=== PATIENT | female | born 1985 | race Caucasian/White ===

== ENCOUNTER 2017-06-21 03:04 | Emergency (ER) | payer MEDICAID, OTHER ==
[~2017-06-21] VITALS: Ht 160 cm; Wt 72.6 kg
[~2017-06-21 03:04] MED LIST: CEFD300C3 PO; CEPH500C PO; CYCL10TA9 PO; IBUP-30 PO; OXYC-471 PO; PRD10T PO
[2017-06-21 05:16] LABS: BILIRUBIN,URINE NEGATIVE (NEGATIVE); COLOR,URINE YELLOW; GLUCOSE, URINE (UA) NEGATIVE (NEGATIVE); KETONES,URINE 4+ (NEGATIVE); LEUKOCYTE ESTERASE ,URINE 3+ (NEGATIVE); NITRITE,URINE POSITIVE (NEGATIVE); PH,URINE 6 (5-9); PROTEIN,URINE 3+ (NEGATIVE); UROBILINOGEN,URINE 1 MG/DL (NORMAL)
[2017-06-21 05:22] LABS: BACTERIA,URINE LARGE /HPF; CLARITY,URINE SLIGHTLY CLOUDY; WBC,URINE TNTC /HPF
--- NOTE | 2017-06-21 05:26 | ED Back Pain ---
General Chief Complaint: Back Problems Stated Complaint: POSS KIDNEY INFECTION Nursing Triage Note: pt states back pain x3 days, Nursing Sepsis Screen: No Definite Risk Source of Information: Patient History of Present Illness Date Seen by Provider: Jun 21, 2017 Time Seen by Provider: 04:40 Initial Comments C/O RIGHT FLANK PAIN X 3 DAYS PAIN IS CONSTANT NOTHING WORSENS OR IMPROVES PAIN --NO RELIEF WITH IBUPROFEN AT MIDNIGHT NO RADIATION OF PAIN HAS HAD SUBJECTIVE FEVER C/O DECREASED URINE OUTPUT HAS POSSIBLY HAD INTERMITTENT BLOOD IN URINE TODAY NO PAIN / BURNING ON URINATION, BUT TOOK OTC TEST FOR UTI AND IT WAS POSITIVE, PER PT + NAUSEA AND COUPLE SMALL EPISODES OF VOMITING HAS BEEN CONSTIPATED--LAST BM 3 DAYS AGO, NORMAL FOR PT. NO BM AFTER DULCOLAX. LMP 05/26/17--HAD NEXPLANON REMOVED 05/31/17 HAS HAD UTI WITH SEPSIS X 1 IN PAST Other Comments PCP: [facility]. FLYNN CATHERINE Allergies and Home Medications Allergies Coded Allergies: No Known Drug Allergies (Unverified , 07/25/15) Home Medications Prednisone 10 Mg Tab, 10 MG PO DAILY Take 6 tabs(60mg)daily, decrease by 1 tab(10mg) every other day. Prescribed by: LEIDY REGALADO on 07/28/15 0928 Constitutional: see HPI, fever Respiratory: no symptoms reported Cardiovascular: no symptoms reported Gastrointestinal: see HPI, constipation, nausea, vomiting Genitourinary: see HPI, decreased output, hematuria : No LMP: May 26, 2017 Musculoskeletal: see HPI, back pain Skin: no symptoms reported Psychiatric/Neurological: No Symptoms Reported Past Hgnfmhe-Gmtvjt-Ytlizv Hx Patient Social History Alcohol Use: Rarely Uses Recreational Drug Use: Yes (+ IV METH AND OPIATES) Drug of Choice: +IV METH AND OPIATES Smoking Status: Current Everyday Smoker (1 PPD) Type Used: Cigarettes (1 PPD) Recent Foreign Travel: No Contact w/Someone Who Travel: No Recent Infectious Disease Expo: No Immunizations Up To Date Date of Influenza Vaccine: Jan 23, 2013 Surgeries History of Surgeries: No Respiratory History of Respiratory Disorde: No Cardiovascular History of Cardiac Disorders: No Neurological History of Neurological Disord: No Reproductive System : No Hx Reproductive Disorders: No Female Reproductive Disorders: Denies Genitourinary History of Genitourinary Disor: Yes (SEPSIS X 1 WITH UTI) Genitourinary Disorders: Bladder Infection Gastrointestinal History of Gastrointestinal Di: Yes (HEPATITIS C --NO TREATMENT) Gastrointestinal Disorders: Chronic Constipation, Hepatitis Musculoskeletal History of Musculoskeletal Dis: No Endocrine History of Endocrine Disorders: No HEENT History of HEENT Disorders: No Cancer History of Cancer: No Psychosocial History of Psychiatric Problem: No Integumentary History of Skin or Integumenta: No Blood Transfusions History of Blood Disorders: No Family Medical History Significant Family History: No Pertinent Family Hx Family Medial History: FH: bipolar disorder 19 FATHER FH: congestive heart failure 19 FATHER Physical Exam Vital Signs Vital Signs - First Documented 06/21/17 04:37 Temp 97.6 Pulse 103 Resp 20 B/P (MAP) 120/73 (89) Pulse Ox 96 O2 Delivery Room Air Capillary Refill : Less Than 3 Seconds General Appearance: No Apparent Distress, WD/WN, Other (SLEEPING SOUNDLY, EASILY AWAKENED) Neck: Normal Inspection Cardiovascular: Regular Rate, Rhythm, No Edema, No JVD, No Murmur, Normal Peripheral Pulses Respiratory: Normal Breath Sounds, No Accessory Muscle Use, No Respiratory Distress Gastrointestinal: Normal Bowel Sounds, Non Tender, Soft Back: CVA Tenderness (R) Extremity: Normal Inspection Neurologic/Psychiatric: Alert, Oriented x3, No Motor/Sensory Deficits, Normal 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, 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 PT OPTS TO TRY ORAL ANTIBIOTICS FIRST AND F/U WITH PCP THIS WEEK FOR FURTHER CARE Departure Impression Impression: Primary Impression: UTI (urinary tract infection) Disposition: 01 HOME, SELF-CARE Condition: Stable Departure-Patient Inst. Referrals: BROOKE SMYTH MD (PCP/Family) Primary Care Physician Patient Instructions: Urinary Tract Infection, Adult (DC) Add. Discharge Instructions: LOTS OF CLEAR LIQUIDS--NO COFFEE, POP OR TEA FOLLOW UP WITH YOUR DR IN 2-3 DAYS FOR RECHECK RETURN TO ER IF SYMPTOMS WORSEN All discharge instructions reviewed with patient and/or family. Voiced understanding. Scripts Ketorolac Tromethamine (Ketorolac Tromethamine) 10 Mg Tablet 10 MG PO Q6H for Pain, #15 TAB Prov: DAYNE WELLS DO 06/21/17 Levofloxacin (Levaquin) 500 Mg Tablet 500 MG PO DAILY for INFECTION, #10 TAB Prov: DAYNE WELLS DO 06/21/17 DAYNE WELLS DO Jun 21, 2017 05:26
[2017-06-21] MEDS ORDERED: KETOROLAC 60 MG/2 ML VIAL IM STA (05:29)
[2017-06-21] MEDS ORDERED: cefTRIAXone 1 GM (ROCEPHIN) VIAL IM ONE (05:30)
[2017-06-21] MEDS ORDERED: LIDOCAINE 1% INJ 20 ML (XYLOCAINE) VIAL INJ ONE (05:30)
[2017-06-21] MEDS ORDERED: LEVO500T2 PO (05:31)
[2017-06-21] MEDS ORDERED: KETO10TA PO (05:31)
[2017-06-21] MEDS ORDERED: LIDOCAINE 1% INJ 50 ML (XYLOCAINE) VIAL ONE (05:48)
[2017-06-21 06:20] VITALS: BP 120/73
== END 2017-06-21 06:20 | disposition home or self-care (01) ==
LOC: EDUNIT# 03:04 → ER 03:22
DX: N39.0 Urinary tract infection, site not specified (principal); F11.90 Opioid use, unspecified, uncomplicated; F15.90 Other stimulant use, unspecified, uncomplicated; F17.210 Nicotine dependence, cigarettes, uncomplicated; Z79.52 Long term (current) use of systemic steroids; Z87.19 Personal history of other diseases of the digestive system
CPT/HCPCS: 81000; 87077; 87088; 87186; 96372; 99284

== ENCOUNTER 2018-11-04 07:35 | Emergency (ER) | payer SELFPAY ==
[~2018-11-04] VITALS: Ht 160 cm; Wt 72.6 kg
[~2018-11-04 07:35] MED LIST changes: +KETO10TA PO; +LEVO500T2 PO
--- OUTSIDE RECORDS SUMMARY | 2018-11-04 07:40 | XMS REPORT | Continuity of Care Document ---
Author Organization Unknown Address Unknown Allergies Active Description Code Type Severity Reaction Onset Reported/Identified Relationship to Patient Clinical Status Yes No Known Drug Allergies [id number] Drug Allergy Unknown N/A 07/25/2015 Medications There is no data. 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 06/11/2008 EDGARDO CLINE DO 466.0 BRONCHITIS, ACUTE 05/22/2012 EDGARDO CLINE DO 382.9 OTITIS MEDIA 06/25/2015 JANETT JANSEN MD Ot B18.2 06/25/2015 JANETT JANSEN MD Ot F15.10 06/25/2015 JANETT JANSEN MD Ot F17.210 06/25/2015 JANETT JANSEN MD Ot M54.07 06/25/2015 JANETT JANSEN MD Ot M54.5 06/25/2015 JANETT JANSEN MD Ot N39.0 06/25/2015 JANETT JANSEN MD Ot B18.2 06/25/2015 JANETT JANSEN MD Ot F15.10 06/25/2015 JANETT JANSEN MD Ot F17.210 06/25/2015 JANETT JANSEN MD Ot M54.07 06/25/2015 JANETT JANSEN MD Ot M54.5 06/25/2015 JANETT JANSEN MD Ot N39.0 06/26/2015 JANETT JANSEN MD Ot B18.2 06/26/2015 JANETT JANSEN MD Ot F15.10 06/26/2015 JANETT JANSEN MD Ot F17.210 06/26/2015 JANETT JANSEN MD Ot M54.07 06/26/2015 JANETT JANSEN MD Ot M54.5 06/26/2015 JANETT JANSEN MD Ot N39.0 06/27/2015 JANETT JANSEN MD Ot B18.2 06/27/2015 JANETT JANSEN MD Ot F15.10 06/27/2015 JANETT JANSEN MD Ot F17.210 06/27/2015 JANETT JANSEN MD Ot M54.07 06/27/2015 JANETT JANSEN MD Ot M54.5 06/27/2015 JANETT JANSEN MD Ot N39.0 06/30/2015 JANETT JANSEN MD Ot A41.01 SEPSIS DUE TO METHICILLIN SUSCEPTIBLE ST 06/30/2015 JANETT JANSEN MD Ot B18.2 CHRONIC VIRAL HEPATITIS C 06/30/2015 JANETT JANSEN MD Ot B96.20 UNSP ESCHERICHIA COLI THE CAUSE OF DI 06/30/2015 JANETT JANSEN MD Ot F15.10 OTHER STIMULANT ABUSE, UNCOMPLICATED 06/30/2015 JANETT JANSEN MD Ot F17.210 NICOTINE DEPENDENCE, CIGARETTES, UNCOMPL 06/30/2015 JANETT JANSEN MD Ot I08.1 RHEUMATIC DISORDERS OF BOTH MITRAL AND T 06/30/2015 JANETT JANSEN MD Ot L03.317 CELLULITIS OF BUTTOCK 06/30/2015 JANETT JANSEN MD Ot M54.07 PANNICULITIS AFFECTING REGIONS OF NECK/B 06/30/2015 JANETT JANSEN MD Ot N39.0 URINARY TRACT INFECTION, SITE NOT SPECIF 07/28/2015 LEIDY REGALADO DO Ot B19.20 UNSPECIFIED VIRAL HEPATITIS C WITHOUT HE 07/28/2015 LEIDY REGALADO DO Ot F15.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 STIMULANT ABUSE, UNCOMPLICATED 07/28/2015 VERONICA REGALADO DOI Ot F17.210 NICOTINE DEPENDENCE, CIGARETTES, UNCOMPL 07/28/2015 LEIDY REGALADO DO Ot L95.9 VASCULITIS LIMITED TO THE SKIN, UNSPECIF 07/28/2015 LEIDY REGALADO DO Ot Z91.19 PATIENT'S NONCOMPLIANCE W [facility] 06/21/2017 RUSSELL DO, DAYNE K Ot F11.90 OPIOID USE, UNSPECIFIED, UNCOMPLICATED 06/21/2017 RUSSELL DO, DAYNE K Ot F15.90 OTHER STIMULANT USE, UNSPECIFIED, UNCOMP 06/21/2017 RUSSELL DO, DAYNE K Ot F17.210 NICOTINE DEPENDENCE, CIGARETTES, UNCOMPL 06/21/2017 RUSSELL DO, DAYNE K Ot M54.9 DORSALGIA, UNSPECIFIED 06/21/2017 RUSSELL DO, DAYNE K Ot N39.0 URINARY TRACT INFECTION, SITE NOT SPECIF 06/21/2017 RUSSELL DO, DAYNE K Ot Z79.52 RESIDENTIAL (CURRENT) USE OF SYSTEMIC STER 06/21/2017 RUSSELL DO, DAYNE K Ot Z87.19 PERSONAL HISTORY OF OTHER DISEASES OF TH 06/23/2017 RUSSELL DO, DAYNE K Ot F11.90 OPIOID USE, UNSPECIFIED, UNCOMPLICATED 06/23/2017 RUSSELL DO, DAYNE K Ot F15.90 OTHER STIMULANT USE, UNSPECIFIED, UNCOMP 06/23/2017 RUSSELL DO, DAYNE K Ot F17.210 NICOTINE DEPENDENCE, CIGARETTES, UNCOMPL 06/23/2017 RUSSELL DO, DAYNE K Ot M54.9 DORSALGIA, UNSPECIFIED 06/23/2017 RUSSELL DO, DAYNE K Ot N39.0 URINARY TRACT INFECTION, SITE NOT SPECIF 06/23/2017 RUSSELL DO, DAYNE K Ot Z79.52 RESIDENTIAL (CURRENT) USE OF SYSTEMIC STER 06/23/2017 RUSSELL DO, DAYNE K Ot Z87.19 PERSONAL HISTORY OF OTHER DISEASES OF Procedures Code Description Performed By Performed On [id number] INSERTION OF INFUSION DEV INTO SUP VENA 06/25/2015 [id number] EXCISION OF LEFT LOWER LEG SKIN, EXTERNA 07/25/2015 Results Test Result Range Complete urinalysis with reflex to culture - 06/21/17 04:30 Urine color determination YELLOW NRG Urine clarity determination SLIGHTLY CLOUDY NRG Urine pH measurement by test strip 6 5-9 Specific gravity of urine by test strip 1.010 1.016-1.022 Urine protein assay by test strip, semi-quantitative 3+ NEGATIVE Urine glucose detection by automated test strip NEGATIVE NEGATIVE Erythrocytes detection in urine sediment by light microscopy 2+ NEGATIVE Urine ketones detection by automated test strip 4+ NEGATIVE Urine nitrite detection by test strip POSITIVE NEGATIVE Urine total bilirubin detection by test strip NEGATIVE NEGATIVE Urine urobilinogen measurement by automated test strip (mass/volume) 1 mg/dL NORMAL Urine leukocyte esterase detection by dipstick 3+ NEGATIVE Automated urine sediment erythrocyte count by microscopy (number/high power field) [HPF] NRG Automated urine sediment leukocyte count by microscopy (number/high power field) TNTC NRG Bacteria detection in urine sediment by light microscopy LARGE NRG Crystals detection in urine sediment by light microscopy NONE NRG Casts detection in urine sediment by light microscopy NONE NRG Mucus detection in urine sediment by light microscopy NEGATIVE NRG Complete urinalysis with reflex to culture YES NRG Bacterial urine culture - 06/21/17 04:30 Bacterial urine culture [id number] NRG COLONY COUNT >100,000/ML NRG FTX;REPORTABLE SENSITIVITY REPORTED 06/22/17 16:00 NRG URINE CULTURE RESULTS PLUS NRG Bacterial susceptibility panel - 06/21/17 04:30 Gentamicin susceptibility test by minimum inhibitory concentration <= NRG Trimethoprim/sulfamethoxazole susceptibility test by minimum inhibitoryconcentration S NRG Ampicillin susceptibility test by minimum inhibitory concentration <= NRG Tobramycin susceptibility test by minimum inhibitory concentration <= NRG Cefazolin susceptibility test by minimum inhibitory concentration <= NRG Ceftriaxone susceptibility test by minimum inhibitory concentration <= NRG Ampicillin/sulbactam susceptibility test by minimum inhibitory concentration <= NRG Piperacillin/tazobactam susceptibility test by minimum inhibitory concentration S NRG Ciprofloxacin susceptibility test by minimum inhibitory concentration <= NRG Meropenem susceptibility test by minimum inhibitory concentration <= NRG Nitrofurantoin susceptibility test by minimum inhibitory concentration <= NRG Aztreonam susceptibility test by minimum inhibitory concentration <= NRG Extended spectrum beta lactamase (ESBL) producing bacteria susceptibility test by minimum inhibitory concentration - NRG Encounters ACCT No. Visit Date/Time Discharge Status Pt. Type Provider Facility Loc./Unit Complaint [id number] 05/22/2012 14:22:00 05/22/2012 23:59:59 CLS Outpatient EDGARDO CLINE DO [id number] 06/21/2017 03:22:00 06/21/2017 06:20:00 DIS Emergency DAYNE WELLS DO [facility] ER POSS KIDNEY INFECTION [id number] 07/25/2015 09:09:00 07/28/2015 14:20:00 DIS Inpatient LEIDY REGALADO DO [facility] 4TH CELLULITIS [id number] 06/23/2015 20:19:00 06/30/2015 11:35:00 DIS Inpatient JUSTYNA ESPINOZA, JANETT Glass [facility] 4TH PANCREATITIS
--- NOTE | 2018-11-04 08:14 | NUR ---
X2 ATTEMPTS TO START IV PATIENT HAS OLD TRACK EPPS. Addendum: 11/04/18 at 0814 by PMCCLURE ORDER TO HAVE LAB DRAW. Addendum: 11/04/18 at 0816 by PMCCLURE LAB CALLED TO DRAW BLOOD.
[2018-11-04 08:17] LABS: BILIRUBIN,URINE NEGATIVE (NEGATIVE); CLARITY,URINE SLIGHTLY CLOUDY; COLOR,URINE YELLOW; GLUCOSE, URINE (UA) NEGATIVE (NEGATIVE); KETONES,URINE 1+ (NEGATIVE); LEUKOCYTE ESTERASE ,URINE 1+ (NEGATIVE); NITRITE,URINE POSITIVE (NEGATIVE); PH,URINE 5 (5-9); PROTEIN,URINE 1+ (NEGATIVE); UROBILINOGEN,URINE NORMAL (NORMAL)
[2018-11-04 08:24] LABS: BACTERIA,URINE LARGE /HPF; SQUAMOUS EPITHELIAL CELL,UR RARE /HPF
--- NOTE | 2018-11-04 08:29 | NUR ---
Gayathri clemons in ED - 11/04/[address] JANSEN AWARE PATIENT CON'T TO C/O PAIN
[2018-11-04] MEDS ORDERED: LIDOCAINE 2% VISCOUS 15 ML UDC PO ONE (08:30)
[2018-11-04] MEDS ORDERED: ANTACID SUSP 30 ML UDC (MYLANTA) PO ONE (08:30)
[2018-11-04 08:39] LABS: METHAMPHETAMINE SCREEN URINE S POSITIVE (NEGATIVE)
[2018-11-04 08:40] LABS: AMPHETAMINE SCREEN, URINE POSITIVE (NEGATIVE); BARBITURATE SCREEN URINE NEGATIVE (NEGATIVE); BENZODIAZEPINES SCREEN URINE NEGATIVE (NEGATIVE); CANNABINOID SCREEN, URINE NEGATIVE (NEGATIVE); COCAINE SCREEN URINE NEGATIVE (NEGATIVE); METHADONE STAT NEGATIVE (NEGATIVE); OPIATE SCREEN URINE POSITIVE (NEGATIVE); OXYCODONE STAT NEGATIVE (NEGATIVE); PROPOXYPHENE STAT NEGATIVE (NEGATIVE); TRICYCLIC ANTIDEPRESSANTS SCRE NEGATIVE (NEGATIVE)
[2018-11-04 09:37] LABS: BASOPHILS % (AUTO) 0 % (0-10); EOSINOPHILS # (AUTO) 0.1 10^3/uL (0.0-0.3); EOSINOPHILS % (AUTO) 2 % (0-10); HEMATOCRIT 39 % (35-52); HEMOGLOBIN 12.9 G/DL (11.5-16.0); LYMPHOCYTES # (AUTO) 1.8 X 10^3 (1.0-4.0); LYMPHOCYTES % (AUTO) 20 % (12-44); MEAN CORPUSCULAR HEMOGLOBIN 29 PG (25-34); MEAN CORPUSCULAR HGB CONC 33 G/DL (32-36); MEAN CORPUSCULAR VOLUME 88 FL (80-99); MEAN PLATELET VOLUME 10.1 FL (7.4-10.4); MONOCYTES % (AUTO) 11 % (0-12); NEUTROPHILS # (AUTO) 6.1 X 10^3 (1.8-7.8); NEUTROPHILS % (AUTO) 67 % (42-75); PLATELET COUNT 233 10^3/uL (130-400); WHITE BLOOD COUNT 9.1 10^3/uL (4.3-11.0)
--- NOTE | 2018-11-04 09:57 | NUR ---
TO ROOM TO GIVE PATIENT PHONE TO RETURN CALL TO HER DAD. SLEEPING AWAKEND TO GIVE HER PHONE TO CALL DAD
[2018-11-04 09:58] LABS: ALANINE AMINOTRANSFERASE 9 U/L (0-55); ALBUMIN 4.1 GM/DL (3.2-4.5); ALKALINE PHOSPHATASE 57 U/L (40-136); BILIRUBIN,TOTAL 0.5 MG/DL (0.1-1.0); BUN/CREATININE RATIO 22; CALCIUM 9.3 MG/DL (8.5-10.1); CARBON DIOXIDE 28 MMOL/L (21-32); CHLORIDE 98 MMOL/L (98-107); CREATININE SERUM 0.81 MG/DL (0.60-1.30); GFR ESTIMATED > 60; GLUCOSE 99 MG/DL (70-105); POTASSIUM 3.6 MMOL/L (3.6-5.0); SODIUM 135 MMOL/L (135-145); TOTAL PROTEIN 7.3 GM/DL (6.4-8.2)
--- NOTE | 2018-11-04 10:06 | ED Abdominal Pain ---
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 She reports this pain has been there for 2 weeks. This morning she ate a baked potato and noted an increase in pain. She injected IV morphine. Difficulty was encountered in obtaining blood for lab exam. Apparently this could be ascribed to previous IV drug use. Timing/Duration: Other Severity/Quality: Moderate Location: RUQ Radiation: No Radiation Allergies and Home Medications Allergies Coded Allergies: No Known Drug Allergies (Unverified , 07/25/15) Home Medications Ketorolac Tromethamine 10 Mg Tablet, 10 MG PO Q6H Prescribed by: DAYNE WELLS on 06/21/17 0531 Levofloxacin 500 Mg Tablet, 500 MG PO DAILY Prescribed by: DAYNE WELLS on 06/21/1731 Prednisone 10 Mg Tab, 10 MG PO DAILY Take 6 tabs(60mg)daily, decrease by 1 tab(10mg) every other day. Prescribed by: LEIDY REGALADO on 07/28/15 0928 Patient Home Medication List Home Medication List Reviewed: Yes Review of Systems Review of Systems Constitutional: see HPI EENTM: No Symptoms Reported Respiratory: No Symptoms Reported Cardiovascular: No Symptoms Reported Gastrointestinal: See HPI Genitourinary: No Symptoms Reported Musculoskeletal: no symptoms reported Skin: no symptoms reported Psychiatric/Neurological: No Symptoms Reported Endocrine: No Symptoms Reported Hematologic/Lymphatic: No Symptoms Reported Past Nlqdexx-Mwurui-Tbdqkp Hx Patient Social History Alcohol Use: Occasionally Uses Recreational Drug Use: Yes (USED IV 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 11/10) Drug of Choice: +IV METH AND OPIATES Smoking Status: Current Everyday Smoker Type Used: Cigarettes Recent Foreign Travel: No Contact w/Someone Who Travel: No Recent Infectious Disease Expo: No Recent Hopitalizations: No Immunizations Up To Date Date of Influenza Vaccine: Jan 23, 2013 Past Medical History Surgeries: No Orthopedic Respiratory: No Cardiac: No Neurological: No Reproductive Disorders: No Female Reproductive Disorders: Denies Genitourinary: Yes (SEPSIS X 1 WITH UTI) Bladder Infection Gastrointestinal: Yes (HEPATITIS C --NO TREATMENT) Chronic Constipation, Hepatitis Musculoskeletal: No Endocrine: No HEENT: No Cancer: No Psychosocial: No Integumentary: No Blood Disorders: No Family Medical History FH: bipolar disorder 19 FATHER FH: congestive heart failure 19 FATHER No Pertinent Family Hx Physical Exam Vital Signs Vital Signs - First Documented 11/04/18 07:37 Temp 99.0 Pulse 100 Resp 18 B/P (MAP) 114/69 (84) Pulse Ox 98 Capillary Refill : Less Than 3 Seconds Height/Weight/BMI Height: 5'3.00" Weight: 160lbs. 1.0oz. [id number]; 26.8 BMI Method:Stated General Appearance: mild distress HEENT: normal ENT inspection Neck: full range of motion Respiratory: chest non-tender, lungs clear, normal breath sounds, no respiratory distress, no accessory muscle use Cardiovascular: normal peripheral pulses, regular rate, rhythm, no edema, no gallop, no JVD, no murmur Gastrointestinal: normal bowel sounds, non tender, soft, no organomegaly, no pulsatile mass Progress/Results/Core Measures Results/Orders Lab Results Laboratory Tests Test 11/04/18 08:13 11/04/18 09:28 Range/Units Urine Color YELLOW Urine Clarity SLIGHTLY CLOUDY Urine pH 5 5-9 Urine Specific [place] 1.025 H 1.016-1.022 Urine Protein 1+ H NEGATIVE Urine Glucose (UA) NEGATIVE NEGATIVE Urine Ketones 1+ H NEGATIVE Urine Nitrite POSITIVE H NEGATIVE Urine Bilirubin NEGATIVE NEGATIVE Urine Urobilinogen NORMAL NORMAL MG/DL Urine Leukocyte Esterase 1+ H NEGATIVE Urine RBC (Auto) NEGATIVE NEGATIVE Urine RBC NONE /HPF Urine WBC 5-10 H /HPF Urine Squamous Epithelial Cells RARE /HPF Urine Crystals NONE /LPF Urine Bacteria LARGE H /HPF Urine Casts NONE /LPF Urine Mucus LARGE H /LPF Urine Culture Indicated YES Urine Opiates Screen POSITIVE H NEGATIVE Urine Oxycodone Screen NEGATIVE NEGATIVE Urine Methadone Screen NEGATIVE NEGATIVE Urine Propoxyphene Screen NEGATIVE NEGATIVE Urine Barbiturates Screen NEGATIVE NEGATIVE Ur Tricyclic Antidepressants Screen NEGATIVE NEGATIVE Urine Phencyclidine Screen NEGATIVE NEGATIVE Urine Amphetamines Screen POSITIVE H NEGATIVE Urine Methamphetamines Screen POSITIVE H NEGATIVE Urine Benzodiazepines Screen NEGATIVE NEGATIVE Urine Cocaine Screen NEGATIVE NEGATIVE Urine Cannabinoids Screen NEGATIVE NEGATIVE White Blood Count 9.1 4.3-11.0 10^3/uL Red Blood Count 4.41 4.35-5.85 10^6/uL Hemoglobin 12.9 11.5-16.0 G/DL Hematocrit 39 35-52 % Mean Corpuscular Volume 88 80-99 FL Mean Corpuscular Hemoglobin 29 25-34 PG Mean Corpuscular Hemoglobin Concent 33 32-36 G/DL Red Cell Distribution Width 12.0 10.0-14.5 % Platelet Count 233 130-400 10^3/uL Mean Platelet Volume 10.1 7.4-10.4 FL Neutrophils (%) (Auto) 67 42-75 % Lymphocytes (%) (Auto) 20 12-44 % Monocytes (%) (Auto) 11 0-12 % Eosinophils (%) (Auto) 2 0-10 % Basophils (%) (Auto) 0 0-10 % Neutrophils # (Auto) 6.1 1.8-7.8 X 10^3 Lymphocytes # (Auto) 1.8 1.0-4.0 X 10^3 Monocytes # (Auto) 1.0 0.0-1.0 X 10^3 Eosinophils # (Auto) 0.1 0.0-0.3 10^3/uL Basophils # (Auto) 0.0 0.0-0.1 10^3/uL Sodium Level 135 135-145 MMOL/L Potassium Level 3.6 3.6-5.0 MMOL/L Chloride Level 98 98-107 MMOL/L Carbon Dioxide Level 28 21-32 MMOL/L Anion Gap 9 5-14 MMOL/L Blood Urea Nitrogen 18 7-18 MG/DL Creatinine 0.81 0.60-1.30 MG/DL Estimat Glomerular Filtration Rate > 60 BUN/Creatinine Ratio 22 Glucose Level 99 70-105 MG/DL Calcium Level 9.3 8.5-10.1 MG/DL Corrected Calcium 9.2 8.5-10.1 MG/DL Total Bilirubin 0.5 0.1-1.0 MG/DL Aspartate Amino Transf (AST/SGOT) 12 5-34 U/L Alanine Aminotransferase (ALT/SGPT) 9 0-55 U/L Alkaline Phosphatase 57 40-136 U/L Total Protein 7.3 6.4-8.2 GM/DL Albumin 4.1 3.2-4.5 GM/DL Lipase 7 L 8-78 U/L Serum Alcohol < 10 <10 MG/DL My Orders Orders - JANETT JANSEN MD Alcohol (11/04/18 07:54) Cbc With Automated Diff (11/04/18 07:54) Comprehensive Metabolic Panel (11/04/18 07:54) Drug Screen Stat (Urine) (11/04/18 07:54) Ua Culture If Indicated (11/04/18 07:54) Antacid Suspension (Mylanta Suspension (11/04/18 08:30) Lidocaine 2% Viscous 15 Ml (Xylocaine Vi (11/04/18 08:30) Urine Culture (11/04/18 08:13) Lipase (11/04/18 10:06) Medications Given in ED Current Medications Medications Dose Ordered Sig/Yuliet Route Start Time Stop Time Status Last Admin Dose Admin Al Hydrox/Mg Hydrox/Simethicone 30 ml ONCE ONCE PO 11/04/18 08:30 11/04/18 08:31 DC 11/04/18 08:24 30 ML Lidocaine HCl 15 ml ONCE ONCE PO 11/04/18 08:30 11/04/18 08:31 DC 11/04/18 08:24 15 ML Vital Signs/I&O 11/04/18 07:37 Temp 99.0 Pulse 100 Resp 18 B/P (MAP) 114/69 (84) Pulse Ox 98 Blood Pressure Mean: 84 Departure Communication (Admissions) 1030 laboratory showed evidence of urinary tract infection. In addition the drug screen tested positive for methamphetamine and opiates. When asked the patient reports that she took 60 mg of morphine IV which she required off the street. She states that she has been doing this for years. Impression Primary Impression: UTI Disposition: 01 HOME, SELF-CARE Condition: Stable/Unchanged Departure-Patient Inst. Decision time for Depature: 10:29 Referrals: NO,LOCAL PHYSICIAN (PCP/Family) Primary Care Physician Patient Instructions: No Instuctions Given Add. Discharge Instructions: All discharge instructions reviewed with patient and/or family. Voiced understanding. Take antibiotics as directed. Scripts Cefdinir (Cefdinir) 300 Mg Capsule 300 MG PO twice a day, #14 CAP Prov: JANETT JANSEN MD 11/04/18 JANETT JANSEN MD Nov 04, 2018 10:06
[2018-11-04] MEDS ORDERED: CEFD300C3 PO (10:32)
[2018-11-04 10:46] VITALS: BP 113/71
== END 2018-11-04 10:46 | disposition home or self-care (01) ==
LOC: EDUNIT# 07:35 → ER 07:36
DX: N39.0 Urinary tract infection, site not specified (principal); B19.20 Unspecified viral hepatitis C without hepatic coma; F15.10 Other stimulant abuse, uncomplicated; F11.10 Opioid abuse, uncomplicated; F17.210 Nicotine dependence, cigarettes, uncomplicated; Z82.49 Family history of ischemic heart disease and other diseases of the circulatory system
CPT/HCPCS: 36415; 80053; 80306; 80320; 81000; 83690; 85025; 87077; 87088; 87186

== ENCOUNTER 2019-08-12 14:05 | Outpatient (CLI) | payer MEDICAID ==
[~2019-08-12] VITALS: Ht 160 cm; Wt 76.5 kg
[2019-08-12 14:11] VITALS: BP 120/80
--- NOTE | 2019-08-12 14:11 | NUR ---
LUIS BAUMANN presented to unit from ED, accompanied by significant other, with c/o CONTRACTIONS. LUIS BAUMANN weighed, gowned, voided, and to bed. EFHM and TOCO applied, VS taken. LUIS BAUMANN oriented to bed controls, call light, TV, heat, and A/C controls.
[2019-08-12 14:22] VITALS: BP 120/80
--- NOTE | 2019-08-12 14:48 | NUR ---
Dr. Milligan notified of patients arrival, complaints, UA, UDS, and EFM tracing, and exam. New orders received.
[2019-08-12] MEDS ORDERED: PREN1TAB79 PO (14:55)
[2019-08-12] MEDS ORDERED: METR500T PO (14:55)
--- NOTE | 2019-08-12 15:03 | NUR ---
Discharge instructions reviewed with patient both written and verbally. Patient verbalizes understanding and denies any current questions or concerns at this time.
[2019-08-12 15:06] LABS: BILIRUBIN,URINE NEGATIVE (NEGATIVE); CLARITY,URINE SL CLOUDY; COLOR,URINE YELLOW; GLUCOSE, URINE (UA) NEGATIVE (NEGATIVE); KETONES,URINE NEGATIVE (NEGATIVE); LEUKOCYTE ESTERASE ,URINE TRACE (NEGATIVE); NITRITE,URINE NEGATIVE (NEGATIVE); PROTEIN,URINE 2+ (NEGATIVE)
--- NOTE | 2019-08-12 15:10 | NUR ---
Patient discharged at this time and ambulated from the unit with no signs or symptoms of distress noted.
[2019-08-12 15:18] LABS: AMPHETAMINE SCREEN, URINE POSITIVE (NEGATIVE); BARBITURATE SCREEN URINE NEGATIVE (NEGATIVE); BENZODIAZEPINES SCREEN URINE NEGATIVE (NEGATIVE); CANNABINOID SCREEN, URINE NEGATIVE (NEGATIVE); COCAINE SCREEN URINE NEGATIVE (NEGATIVE); METHADONE STAT NEGATIVE (NEGATIVE); METHAMPHETAMINE SCREEN URINE S POSITIVE (NEGATIVE); OPIATE SCREEN URINE POSITIVE (NEGATIVE); OXYCODONE STAT NEGATIVE (NEGATIVE); PROPOXYPHENE STAT NEGATIVE (NEGATIVE); TRICYCLIC ANTIDEPRESSANTS SCRE NEGATIVE (NEGATIVE)
[2019-08-12 15:19] LABS: BACTERIA,URINE NEGATIVE /HPF
== END 2019-08-12 15:10 | disposition home or self-care (01) ==
LOC: WSo 14:05 → LDRP 14:05 → WSo 15:10
PROVIDERS: ATTEND Obstetrics & Gynecology
DX: O62.9 Abnormality of forces of labor, unspecified (principal); Z3A.35 35 weeks gestation of pregnancy
CPT/HCPCS: 80306; 81000; 87077; 87088; 99213

== ENCOUNTER → 2020-03-10 | Outpatient (CLI) | payer MEDICAID ==
[~2020-03-10] MED LIST changes: +METR500T PO; +PREN1TAB79 PO
== END ==
LOC: LABNPT 11:49
PROVIDERS: ATTEND Nurse Practitioner Family
DX: M54.9 Dorsalgia, unspecified (principal); R06.02 Shortness of breath; Z20.828 Contact with and (suspected) exposure to other viral communicable diseases
CPT/HCPCS: 87635

== ENCOUNTER 2023-01-13 10:20 | Emergency (ER) | payer SELFPAY ==
[~2023-01-13] VITALS: Ht 165 cm; Wt 91.0 kg
[~2023-01-13 10:20] MED LIST changes: +CYCL10TA25 PO; -CYCL10TA9 PO; -OXYC-471 PO; +OXYC1TAB11 PO
[2023-01-13] MEDS ORDERED: NALOXONE 0.4 MG/ML 1 ML VIAL IV ONE (10:23)
[2023-01-13] MEDS ORDERED: NALOXONE 2 MG/2 ML SYRINGE ONE (10:27)
[2023-01-13] MEDS ORDERED: NS IV 1000 ML 1,000 ML IV STA (10:37)
[2023-01-13 10:52] LABS: BASOPHILS % (AUTO) 0 % (0-10); EOSINOPHILS # (AUTO) 0.1 10^3/uL (0.0-0.3); EOSINOPHILS % (AUTO) 2 % (0-10); HEMATOCRIT 38 % (35-52); HEMOGLOBIN 11.4 g/dL (11.5-16.0); LYMPHOCYTES # (AUTO) 3.5 10^3/uL (1.0-4.0); LYMPHOCYTES % (AUTO) 41 % (12-44); MEAN CORPUSCULAR HEMOGLOBIN 28 pg (25-34); MEAN CORPUSCULAR HGB CONC 30 g/dL (32-36); MEAN CORPUSCULAR VOLUME 95 fL (80-99); MONOCYTES # (AUTO) 0.3 10^3/uL (0.0-1.0); MONOCYTES % (AUTO) 3 % (0-12); NEUTROPHILS # (AUTO) 4.2 10^3/uL (1.8-7.8); NEUTROPHILS % (AUTO) 50 % (42-75); PLATELET COUNT 227 10^3/uL (130-400); WHITE BLOOD COUNT 8.4 10^3/uL (4.3-11.0)
[2023-01-13 10:53] LABS: ALBUMIN 3.3 GM/DL (3.2-4.5); CHLORIDE 103 MMOL/L (98-107); POTASSIUM 4.1 MMOL/L (3.6-5.0); SODIUM 139 MMOL/L (135-145)
[2023-01-13 10:54] LABS: CALCIUM 8.6 MG/DL (8.5-10.1)
[2023-01-13 10:54] LABS: ABG BASE EXCESS -8.8 MMOL/L (-2.5-2.5); ABG OXYGEN SATURATION 99 % (94-100); ABG PCO2 57 MMHG (35-45); ABG PO2 144 MMHG (79-93); ABG TCO2 21.5 MMOL/L (21.0-31.0)
[2023-01-13 10:56] LABS: GLUCOSE 293 MG/DL (70-105); TOTAL PROTEIN 6.2 GM/DL (6.4-8.2)
[2023-01-13 10:57] LABS: BILIRUBIN,TOTAL 0.2 MG/DL (0.1-1.0); CARBON DIOXIDE 17 MMOL/L (21-32)
[2023-01-13 10:59] LABS: ALKALINE PHOSPHATASE 90 U/L (40-136); CREATININE SERUM 1.27 MG/DL (0.60-1.30); GFR ESTIMATED 56
[2023-01-13 11:00] LABS: CLARITY,URINE CLEAR; COLOR,URINE YELLOW; PROTEIN,URINE 3+ (NEGATIVE)
[2023-01-13 11:01] LABS: BACTERIA,URINE MODERATE /HPF; BILIRUBIN,URINE NEGATIVE (NEGATIVE); GLUCOSE, URINE (UA) TRACE (NEGATIVE); KETONES,URINE NEGATIVE (NEGATIVE); LEUKOCYTE ESTERASE ,URINE 1+ (NEGATIVE); NITRITE,URINE NEGATIVE (NEGATIVE); RBC,URINE 50-100 /HPF; WBC,URINE 50-100 /HPF
[2023-01-13 11:01] LABS: BUN/CREATININE RATIO 10
[2023-01-13 11:02] LABS: ALANINE AMINOTRANSFERASE 58 U/L (0-55); SALICYLATE < 5.0 MG/DL (5.0-20.0)
[2023-01-13 11:05] LABS: ALLENS TEST YES-POS; INSPIRED O2 100%; PATIENT TEMP 34; VENTILATOR YES
[2023-01-13 11:07] LABS: AMPHETAMINE SCREEN, URINE POSITIVE (NEGATIVE); BARBITURATE SCREEN URINE NEGATIVE (NEGATIVE); CANNABINOID SCREEN, URINE NEGATIVE (NEGATIVE); COCAINE SCREEN URINE NEGATIVE (NEGATIVE); METHADONE STAT NEGATIVE (NEGATIVE); OPIATE SCREEN URINE NEGATIVE (NEGATIVE); OXYCODONE STAT NEGATIVE (NEGATIVE); PROPOXYPHENE STAT NEGATIVE (NEGATIVE); TRICYCLIC ANTIDEPRESSANTS SCRE NEGATIVE (NEGATIVE)
[2023-01-13 11:09] LABS: ABG PH 7.14 (7.37-7.43)
[2023-01-13 11:17] LABS: ACETAMINOPHEN < 10 UG/ML (10-30)
[2023-01-13 11:20] VITALS: BP 175/108
--- NOTE | 2023-01-13 11:24 | Diagnostic Imaging Report ---
PROCEDURE: CT head and CT cervical spine without contrast. TECHNIQUE: Multiple contiguous axial images were obtained through the brain and cervical spine without the use of intravenous contrast. Sagittal and coronal reformations through the cervical spine were then performed. Auto Exposure Controls were utilized during the CT exam to meet ALARA standards for radiation dose reduction. INDICATION: Overdose, found on the floor. No prior studies are available for comparison. CT HEAD: There appears to be global cerebral edema. There is complete loss of the busby-white matter differentiation. There appears to be global sulcal effacement as well. Ventricles are small. There appears to be significant effacement of the basilar cisterns. No midline shift is identified. Middle cerebral arteries appear to be hyperdense bilaterally. There is also some hyperdensity to anterior cerebrals. Intravascular thrombus cannot be entirely excluded. IMPRESSION: There appears to be a diffuse cerebral edema with loss of busby-white matter differentiation. Features are concerning for global anoxic event.. MRI could be performed for further evaluation. CT cervical spine: There is some slight reversal of the normal cervical lordotic curvature. There is multilevel degenerative disc disease, greatest at C5-C6 and C6-C7 levels with disc space narrowing and marginal spurring. There is also some right-sided facet arthropathy. Patient is intubated obscuring the prevertebral tissues. No fractures are seen. Odontoid appears intact. IMPRESSION: Cervical spondylosis. No acute bony abnormality is detected. Dictated by: Dictated on workstation # [id number]
--- NOTE | 2023-01-13 11:40 | Diagnostic Imaging Report ---
INDICATION: Status post CODE BLUE. Overdose. Found down. COMPARISON: 06/25/2015 FINDINGS: Single frontal radiograph view of the chest was obtained and demonstrates indwelling endotracheal tube with tip just beyond the giancarlo extending into the origin of the right mainstem bronchus. Gastric tube is also seen tip and side-port likely within the lumen of the stomach. Cardiac silhouette and pulmonary vasculature are within normal limits. Lungs show low inspiratory volumes with crowding of the central hilar structures, but are otherwise clear. There is no large effusion or pneumothorax. Osseous structures show no acute abnormalities. IMPRESSION: 1. Lines and tubes as above. Recommend withdrawing the endotracheal tube by 4 cm. Dictated by: Dictated on workstation # [id number]
[2023-01-13] MEDS ORDERED: LABETALOL 5 mg/ml 4 ML SINGLE DOSE SYRINGE ONE (11:53)
--- NOTE | 2023-01-13 12:15 | ED General ---
General Chief Complaint: Code Blue Stated Complaint: POST CODE Source of Information: EMS, Family Exam Limitations: Physical Impairments History of Present Illness Date Seen by Provider: Jan 13, 2023 Time Seen by Provider: 10:15 Initial Comments Patient is a 37-year-old female who was found by family members on the bathroom floor not breathing and pulseless at approximately 925 this morning. A "needle" was reportedly on the floor next to her. Patient reportedly has a history of opiate abuse. Family members started CPR, EMS responded and patient had epi, an amp of bicarb and Narcan reportedly and ROSC was achieved. Patient is brought to my ER with an i-gel in place hypotensive in the 60s heart rate in the 80s. Definitive airway was placed with glide scope 7.5 ET tube positive visualization of tube passing through the cords. Equal breath sounds bilaterally equal expansion of the chest wall. NG tube was placed. Blood sugar was checked on arrival, in the 300s. IV fluids x2 L started. Patient initially had an IO in the right shoulder proximal humerus. Second IV 24-gauge placed left AC. Patient has notable abrasion over nasal bridge and pupils are drastically asymmetric. Left 4mm, right 5-6mm, both unreactive. Patient does not respond to painful stimuli. More narcan (2mg) given - no improvement. Patient taken to CT while labs sent. Timing/Duration: 1 Hour Severity: Severe Allergies and Home Medications Allergies Coded Allergies: No Known Drug Allergies (Unverified , 07/25/15) Patient Home Medication List Home Medication List Reviewed: Yes Metronidazole (Flagyl) 500 Mg Tablet, 500 MG PO BID, (Reported) Entered as Reported by: NAIN GUTIERREZ on 08/12/19 6145 Vit W-Ca,Fe,FA(<1 mg) ( Vitamins) 1 Each Tablet, 1 EACH PO DAILY, (Reported) Entered as Reported by: NAIN GUTIERREZ on 08/12/19 145 Review of Systems Review of Systems Constitutional: see HPI Patient unable to provide HPI/ROS due to unresponsive state Past Udulcss-Yqdasj-Txgqgb Hx Past Medical History Surgeries: No Orthopedic Respiratory: No Cardiac: No Neurological: No Reproductive Disorders: No Female Reproductive Disorders: Denies Genitourinary: Yes (SEPSIS X 1 WITH UTI) Bladder Infection Gastrointestinal: Yes (HEPATITIS C --NO TREATMENT) Chronic Constipation, Hepatitis Musculoskeletal: No Endocrine: No HEENT: No Cancer: No Psychosocial: No Integumentary: No Blood Disorders: No Family Medical History FH: bipolar disorder 19 FATHER FH: congestive heart failure 19 FATHER No Pertinent Family Hx Physical Exam Vital Signs Vital Signs - First Documented 01/13/23 11:20 Pulse 106 Resp 29 Pulse Ox 98 FiO2 40 Capillary Refill : Height, Weight, BMI Height: 5'3.00" Weight: 160lbs. 1.0oz. 72.008136nx; 29.88 BMI Method:Stated General Appearance: Other (unresponsive) Eyes: Bilateral Eye Other (asymmetric pupils left 4mm right 5-6mm unreactive) HEENT: Normal ENT Inspection, Other (no drainage from nose; TM's clear bilaterally) Neck: Normal Inspection Respiratory: Other (BS equal bilaterally with BVM) Cardiovascular: Regular Rate, Rhythm (70's), Other (1+ radial pulse noted on arrival bilaterally) Gastrointestinal: Abnormal Bowel Sounds (hypoactive); No Distended Genital/Rectal: Normal Genital Exam Extremity: Other (normal inspection - no obvious trauma) Neurologic/Psychiatric: Other (GCS 3) Skin: Normal Color, Other (small abrasion nasal bridge; no battles sign, no ra ccoon eyes. ) Procedures/Interventions Date of ETT Placement: Jan 13, 2023 Time of ETT Placement: 10:30 Intubation Method: orotracheal Tube Size: 7.50 Positive End Tide CO2: Yes Breath Sounds after Intubation: bilateral-equal Intubation Complications: no complications Post Intubation Xray: Yes initially tube 4cm deep - withdrawn Progress/Results/Core Measures Suspected Sepsis SIRS Temperature: Pulse: 106 Respiratory Rate: 29 Laboratory Tests 01/13/23 10:30: White Blood Count 8.4 Blood Pressure 175 /108 Mean: Laboratory Tests 01/13/23 10:30: Creatinine 1.27, Platelet Count 227, Total Bilirubin 0.2 Results/Orders Lab Results Laboratory Tests Test 01/13/23 10:30 01/13/23 10:39 01/13/23 10:40 01/13/23 10:45 Range/Units White Blood Count 8.4 4.3-11.0 10^3/uL Red Blood Count 4.02 3.80-5.11 10^6/uL Hemoglobin 11.4 L 11.5-16.0 g/dL Hematocrit 38 35-52 % Mean Corpuscular Volume 95 80-99 fL Mean Corpuscular Hemoglobin 28 25-34 pg Mean Corpuscular Hemoglobin Concent 30 L 32-36 g/dL Red Cell Distribution Width 12.3 10.0-14.5 % Platelet Count 227 130-400 10^3/uL Mean Platelet Volume 11.0 9.0-12.2 fL Immature Granulocyte % (Auto) 3 % Neutrophils (%) (Auto) 50 42-75 % Lymphocytes (%) (Auto) 41 12-44 % Monocytes (%) (Auto) 3 0-12 % Eosinophils (%) (Auto) 2 0-10 % Basophils (%) (Auto) 0 0-10 % Neutrophils # (Auto) 4.2 1.8-7.8 10^3/uL Lymphocytes # (Auto) 3.5 1.0-4.0 10^3/uL Monocytes # (Auto) 0.3 0.0-1.0 10^3/uL Eosinophils # (Auto) 0.1 0.0-0.3 10^3/uL Basophils # (Auto) 0.0 0.0-0.1 10^3/uL Immature Granulocyte # (Auto) 0.3 H 0.0-0.1 10^3/uL Sodium Level 139 135-145 MMOL/L Potassium Level 4.1 3.6-5.0 MMOL/L Chloride Level 103 98-107 MMOL/L Carbon Dioxide Level 17 L 21-32 MMOL/L Anion Gap 19 H 5-14 MMOL/L Blood Urea Nitrogen 13 7-18 MG/DL Creatinine 1.27 0.60-1.30 MG/DL Estimat Glomerular Filtration Rate 56 BUN/Creatinine Ratio 10 Glucose Level 293 H 70-105 MG/DL Calcium Level 8.6 8.5-10.1 MG/DL Corrected Calcium 9.2 8.5-10.1 MG/DL Total Bilirubin 0.2 0.1-1.0 MG/DL Aspartate Amino Transf (AST/SGOT) 78 H 5-34 U/L Alanine Aminotransferase (ALT/SGPT) 58 H 0-55 U/L Alkaline Phosphatase 90 40-136 U/L Total Protein 6.2 L 6.4-8.2 GM/DL Albumin 3.3 3.2-4.5 GM/DL Salicylates Level < 5.0 L 5.0-20.0 MG/DL Acetaminophen Level < 10 L 10-30 UG/ML Serum Alcohol < 10 <10 MG/DL Glucometer 254 H 70-110 MG/DL Blood Gas Puncture Site R WRIST Blood Gas Patient Temperature 34 Arterial Blood pH 7.14 *L 7.37-7.43 Arterial Blood Partial Pressure CO2 57 H 35-45 MMHG Arterial Blood Partial Pressure O2 144 H 79-93 MMHG Arterial Blood HCO3 20 L 23-27 MMOL/L Arterial Blood Total CO2 21.5 21.0-31.0 MMOL/L Arterial Blood Oxygen Saturation 99 94-100 % Arterial Blood Base Excess -8.8 L -2.5-2.5 MMOL/L Meng Test YES-POS Blood Gas Ventilator Setting YES Blood Gas Inspired Oxygen 100% Urine Color YELLOW Urine Clarity CLEAR Urine pH 7.0 5-9 Urine Specific Emerson 1.020 1.016-1.022 Urine Protein 3+ H NEGATIVE Urine Glucose (UA) TRACE H NEGATIVE Urine Ketones NEGATIVE NEGATIVE Urine Nitrite NEGATIVE NEGATIVE Urine Bilirubin NEGATIVE NEGATIVE Urine Urobilinogen 1.0 < = 1.0 MG/DL Urine Leukocyte Esterase 1+ H NEGATIVE Urine RBC (Auto) 3+ H NEGATIVE Urine RBC 50-100 H /HPF Urine WBC 50-100 H /HPF Urine Squamous Epithelial Cells 10-25 H /HPF Urine Crystals NONE /LPF Urine Bacteria MODERATE H /HPF Urine Casts NONE /LPF Urine Mucus NEGATIVE /LPF Urine Culture Indicated YES Urine Opiates Screen NEGATIVE NEGATIVE Urine Oxycodone Screen NEGATIVE NEGATIVE Urine Methadone Screen NEGATIVE NEGATIVE Urine Propoxyphene Screen NEGATIVE NEGATIVE Urine Barbiturates Screen NEGATIVE NEGATIVE Ur Tricyclic Antidepressants Screen NEGATIVE NEGATIVE Urine Phencyclidine Screen NEGATIVE NEGATIVE Urine Amphetamines Screen POSITIVE H NEGATIVE Urine Methamphetamines Screen POSITIVE H NEGATIVE Urine Benzodiazepines Screen NEGATIVE NEGATIVE Urine Cocaine Screen NEGATIVE NEGATIVE Urine Cannabinoids Screen NEGATIVE NEGATIVE Test 01/13/23 11:39 Range/Units SARS-CoV-2 RNA (RT-PCR) Not Detected Not Detecte My Orders Orders - THONG GIRALDO MD Naloxone Injection (Naloxone Injection) (01/13/23 10:27) Ua Culture If Indicated (01/13/23 10:37) Cbc And Automated Diff (01/13/23 10:37) Comprehensive Metabolic Panel (01/13/23 10:37) Alcohol (01/13/23 10:37) Drug Screen Stat (Urine) (01/13/23 10:37) Acetaminophen (01/13/23 10:37) Salicylate (01/13/23 10:37) Ekg Tracing (01/13/23 10:37) Ed Iv/Invasive Line Start (01/13/23 10:37) Monitor-Rhythm Ecg Trace Only (01/13/23 10:37) Bh Status Checks/Observation O Q15M (01/13/23 10:37) Ed Iv/Invasive Line Start (01/13/23 10:37) Ct Head/Cervical Spine Wo (01/13/23 10:37) Chest 1 View, Ap/Pa Only (01/13/23 10:37) Arterial Blood Gas (01/13/23 10:37) Covid 19 Inhouse Test (01/13/23 10:37) Ns Iv 1000 Ml (Ns Iv 1000 Ml) (01/13/23 10:37) Propofol Drip (Icu) (Propofol Drip (Icu) (01/13/23 11:00) Urine Culture (01/13/23 10:45) Propofol Drip (Icu) (Propofol Drip (Icu) (01/13/23 10:53) Sputum Culture (01/13/23 11:25) Labetalol Injection (Sdv) (Labetalol Inj (01/13/23 11:53) Vital Signs/I&O 01/13/23 11:20 Pulse 106 Resp 29 Pulse Ox 98 FiO2 40 Capillary Refill : Progress Note : Time: 12:25 Progress Note Patient seen and evaluated by me. Evaluation today includes physical exam, CBC, Chem-12, urine drug screen, aspirin, Tylenol, alcohol levels, magnesium, EKG. ABG, single view chest x-ray, CT head and cervical spine. Urine test urinalysis and Covid test. Pertinent physical exam findings well-developed well-nourished female who is completely unresponsive with a GCS of 3. She is hypotensive on arrival. I-gel in place. She has significantly asymmetric pupils with an abrasion noted over the nasal bridge. Neck exam is normal heart is regular in the 80s. Lungs are clear with BVM. Abdomen is nondistended. No obvious outward signs of trauma. Differential diagnosis includes overdose, spontaneous subarachnoid hemorrhage, cervical spine fracture, anoxic brain injury, arrhythmia Patient's labs independently reviewed and interpreted by me. Her CBC is normal. Chem-12 remarkable only for mildly decreased CO2 at 17. Blood sugar elevated at 293. Mild elevation in liver function tests. Her tox for aspirin salicylate and alcohol are undetectable. Her urine drug screen is positive for methamphetamine. COVID test is negative. Urinalysis from [facility] placement shows 3+ protein, 50-100 red and white cells, moderate bacteria, some squamous epithelial cells are noted. Her ABG reveals pH of 7.14 PCO2 of 57, PO2 of 144 on an FiO2 initially of 100%. EKG shows normal sinus rhythm with frequent PVCs. Single view chest x-ray postintubation shows deep placement of the ET tube, this was withdrawn approximately [address] of the head read by radiologist shows severe anoxic brain injury. Cervical spine is unremarkable. Patient is treated with IV Narcan at presentation as well as 2 L of normal saline. She became si gnificantly hypertensive after CT with blood pressures in the 160s, 170s over 130s. She was given 20 mg of labetalol with rapid improvement in her pulse and blood pressure. Heart rate had been 130. She is currently running 89 bpm blood pressure 105/77. She is on 35 mg of propofol. This has been titrated up and down over the course of her stay here in the emergency department. I have discussed the case with family and prepared them that this may be an end-of-life episode. I discussed the case with Dr. Cooper, hospitalist on for [facility] she declines admission due to lack of neurology care at our facility. I spoke with Dr. Daniels at [facility] in the ICU. He has accepted the patient for transfer. Patient will be transferred by ground ambulance. Films have been clouded to [place]. ECG Initial ECG Impression Date: Jan 13, 2023 Initial ECG Impression Time: 11:36 Initial ECG Rate: 107 Initial ECG Rhythm: Normal Sinus Comment frequent PVC's; normal intervals other than that with no ST elevation or dep ression Diagnostic Imaging Diagonstic Imaging: Xray Plain Films/CT/US/NM/MRI: chest Comments [facility] [place] NAME: LUIS BAUMANN MED REC#: [id number] PT STATUS: REG ER : 1985 PHYSICIAN: THONG GIRALDO MD ADMIT DATE: 01/13/23/ER Draft Date of Exam:01/13/23 CHEST 1 VIEW, AP/PA ONLY INDICATION: Status post CODE BLUE. Overdose. Found down. COMPARISON: 06/25/2015 FINDINGS: Single frontal radiograph view of the chest was obtained and demonstrates indwelling endotracheal tube with tip just beyond the giancarlo extending into the origin of the right mainstem bronchus. Gastric tube is also seen tip and side-port likely within the lumen of the stomach. Cardiac silhouette and pulmonary vasculature are within normal limits. Lungs show low inspiratory volumes with crowding of the central hilar structures, but are otherwise clear. There is no large effusion or pneumothorax. Osseous structures show no acute abnormalities. IMPRESSION: 1. Lines and tubes as above. Recommend withdrawing the endotracheal tube by 4 cm. Dictated on workstation # [id number] Dict: 01/13/23 1117 Trans: 01/13/23 1139 [id number] Interpreted by: YUE TIAN MD Electronically signed by: (TUBE WAS WITHDRAWN ABOUT 3cm) Diagonstic Imaging: CT Plain Films/CT/US/NM/MRI: c-spine, head Comments [facility] [place] NAME: LUIS BAUMANN [facility] REC#: [id number] PT STATUS: REG ER : 1985 PHYSICIAN: THONG GIRALDO MD ADMIT DATE: 01/13/23/ER Draft Date of Exam:01/13/23 CT HEAD/CERVICAL SPINE WO PROCEDURE: CT head and CT cervical spine without contrast. TECHNIQUE: Multiple contiguous axial images were obtained through the brain and cervical spine without the use of intravenous contrast. Sagittal and coronal reformations through the cervical spine were then performed. Auto Exposure Controls were utilized during the CT exam to meet ALARA standards for radiation dose reduction. INDICATION: Overdose, found on the floor. No prior studies are available for comparison. CT HEAD: There appears to be global cerebral edema. There is complete loss of the busby-white matter differentiation. There appears to be global sulcal effacement as well. Ventricles are small. There appears to be significant effacement of the basilar cisterns. No midline shift is identified. Middle cerebral arteries appear to be hyperdense bilaterally. There is also some hyperdensity to anterior cerebrals. Intravascular thrombus cannot be entirely excluded. IMPRESSION: There appears to be a diffuse cerebral edema with loss of busby-white matter differentiation. Features are concerning for global anoxic event.. MRI could be performed for further evaluation. CT cervical spine: There is some slight reversal of the normal cervical lordotic curvature. There is multilevel degenerative disc disease, greatest at C5-C6 and C6-C7 levels with disc space narrowing and marginal spurring. There is also some right-sided facet arthropathy. Patient is intubated obscuring the prevertebral tissues. No fractures are seen. Odontoid appears intact. IMPRESSION: Cervical spondylosis. No acute bony abnormality is detected. Dictated on workstation # [id number] Dict: 01/13/23 1114 Trans: 01/13/23 1124 [facility] [id number] Interpreted by: BALJINDER RUELAS MD Electronically signed by: Critical Care Note Critical Care Start Time: 10:15 Stop Time: 12:22 Total Time (minutes) 50 minutes critical care time in the evaluation and management of this unresponsive patient/postcode. Time includes initial evaluation with fluid resuscitation, supplemental oxygenation. Time includes review of medical records, discussion with family, discussion with hospitalist here at [facility] as well as protection chief industrial plant at [facility]. Multiple reevaluations. Time does not include that spent in procedures/intubation. Departure Communication (Admissions) Time/Spoke to Consulting Phy: 11:[address] Nick (hospitalist) - declines due to lack of Neurology Impression Primary Impression: Cardiac arrest Additional Impressions: Methamphetamine use Anoxic brain injury Disposition: XFER SHT-TRM HOSP Condition: Critical Transfer Transfer Reason: Exceeds level of care Time Spoke to Accepting Phy: 11:55 Transfer Progress Notes Discussed with [employer] - Dr Garcia - accepts patient for transfer Transfer Facility: [place] Method of Transfer: EMS Departure-Patient Inst. Referrals: AIMEE COCHRAN DO (PCP/Family) Primary Care Physician THONG GIRALDO MD Jan 13, 2023 12:15
[2023-01-13 13:33] VITALS: BP 71/40
[2023-01-13] MEDS ORDERED: NOREPINEPHRINE 8 MG/250 ML 250 ML IV ONE (13:39)
[2023-01-13] MEDS ORDERED: NOREPINEPHRINE 8 MG/250 ML 250 ML IV SCH (14:00)
== END 2023-01-13 14:14 | disposition short-term general hospital (02) ==
LOC: EDUNIT# 10:21 → ER 10:22
DX: S00.31XA Abrasion of nose, initial encounter (principal); I46.9 Cardiac arrest, cause unspecified; F15.90 Other stimulant use, unspecified, uncomplicated; G93.1 Anoxic brain damage, not elsewhere classified; I95.9 Hypotension, unspecified; Z20.822 Contact with and (suspected) exposure to COVID-19; X58.XXXA Exposure to other specified factors, initial encounter; Y92.002 Bathroom of unspecified non-institutional (private) residence as the place of occurrence of the external cause
CPT/HCPCS: 31500; 36556; 51702; 70450; 71045; 72125; 80053; 80306; 81000; 82805; 82947; 83735; 85025; 87070; 87077; 87088; 87205; 87636; 93005; 93041; 94799; 99291; G0480 ×3; 36415; 80320; 80329